=== PATIENT | female | born 1990 | race African-American/Black ===

== ENCOUNTER 2019-07-31 02:52 | Inpatient (IN) ==
[2019-07-31] MEDS ORDERED: ONDANSETRON 4 MG/2 ML VIAL IV PRN ×2 (03:08→07:31)
[2019-07-31] MEDS ORDERED: BUTORPHANOL 2 MG/ML VIAL IV PRN (03:08)
[2019-07-31] MEDS ORDERED: ONDANSETRON 4 MG/2 ML VIAL IV ONE (03:12)
[2019-07-31] MEDS ORDERED: hydrOXYzine HCL 25 MG/1 ML VIAL IM PRN (03:12)
[2019-07-31] MEDS ORDERED: NALOXONE 0.4 MG/ML VIAL IV PRN (03:12)
[2019-07-31] MEDS ORDERED: PROMETHAZINE 25 MG/1 ML VIAL IM PRN (03:12)
[2019-07-31] MEDS ORDERED: diphenhydrAMINE 50 MG/1 ML VIAL IV PRN ×2 (03:12)
[2019-07-31] MEDS ORDERED: ePHEDrine 50 MG/ML AMP IV PRN (03:12)
[2019-07-31] MEDS ORDERED: CITRIC ACID/SODIUM CITRATE 30 ML UDCUP PO ONE ×2 (03:15→03:21)
[2019-07-31] MEDS ORDERED: FAMOTIDINE 20 MG/2 ML VIAL IV ONE ×2 (03:15→03:21)
[2019-07-31] MEDS ORDERED: OXYTOCIN/LR 20 UNIT/1,000 ML BAG IV PRN ×2 (03:15→03:21)
[2019-07-31 03:30] LABS: Basophils % 0.2 % (0.0-0.8); Eosinophils # 0.4 10*3/uL (0.0-0.87); Eosinophils % 3.9 % (0.00-10.9); Hematocrit 35.2 VOL% (35.7-47.0); Hemoglobin 11.8 GM/DL (12.0-16.0); Lymphocytes % 19.7 % (21.3-54.2); Mean Corpuscular HGB Conc 33.5 GM/DL (32-36); Mean Corpuscular Volume 98.6 FL (87-102); Mean Platelet Volume 11.2 FL (9.6-12.0); Monocytes % 6.7 % (1.7-12.7); Neutrophils % 68.5 % (38.7-73.9); Platelet Count 158 T/CUMM (130-400); Red Blood Count 3.57 MC/CUMM (3.8-5.5); Red Cell Distribution Width 12.6 % (9.3-17.3)
[2019-07-31] MEDS ORDERED: fentaNYL 2 MCG/ROPIV 0.2% EPID 100 ML EPIDURAL SCH (03:30)
[2019-07-31] MEDS ORDERED: LACTATED RINGERS 1,000 ML IV SCH (03:30)
[2019-07-31] MEDS ORDERED: INFLUENZA VIRUS VACCINE 0.5 ML SYRINGE IM ONE (03:38)
[2019-07-31] MEDS ORDERED: MEPERIDINE 50 MG/1 ML VIAL ONE (03:44)
[2019-07-31 03:51] LABS: Alanine Aminotransferase 25 U/L (13-56); Albumin 2.8 G/DL (3.4-5.0); Alkaline Phosphatase 115 U/L (45-117); Aspartate Amino Transferase 25 U/L (0-37); Bilirubin,Total < 0.39 MG/DL (0.2-1.0); Blood Urea Nitrogen 5 MG/DL (7-18); Calcium 8.7 MG/DL (8.5-10.1); Estimated Glom Filtration Rate 163 ML/MIN; Glucose 92 MG/DL (74-106); Osmolality,Calculated 271.7 MOS/KG (273-304); Total Protein 6.6 G/DL (6.4-8.3)
[2019-07-31 04:40] LABS: Apearance,Urine CLEAR (Clear); Bilirubin,Urine Negative (Negative); Blood, Urine Small mg/dL (Negative); Glucose,Urine (UA) Negative (Negative); Ketones,Urine Negative (Negative); Mucus,Urine Occasional /LPF (Occasional); Nitrite,Urine Negative (Negative); Protein,Urine Negative; RBC,Urine 3 /HPF (0-4); Squamous Epithelial Cell,Urine Occasional /HPF (0-10); Urine Color Yellow (Yellow); Urine Specific Gravity 1.008 (1.001-1.035); Urine Urobilinogen < 2.0 EU/DL (0.2-1.0); WBC,Urine 1 /HPF (0-6)
[2019-07-31] MEDS ORDERED: MEPERIDINE 50 MG/1 ML VIAL IV ONE (04:51)
[2019-07-31] MEDS ORDERED: TRANEXAMIC ACID 1,000 MG/10 ML VIAL ONE (05:29)
[2019-07-31] MEDS ORDERED: METHYLERGONOVINE 0.2 MG/1 ML AMP ONE (05:29)
[2019-07-31] MEDS ORDERED: OXYTOCIN/LR 20 UNIT/1,000 ML BAG IV ONE ×2 (05:29→07:31)
[2019-07-31] MEDS ORDERED: CARBOPROST TROMETHAMINE 250 MCG/ML AMP IM ONE (05:29)
[2019-07-31] MEDS ORDERED: miSOPROStoL 200 MCG TABLET ONE (05:29)
[2019-07-31] MEDS ORDERED: miSOPROStoL 200 MCG TABLET VAG ONE (07:22)
[2019-07-31] MEDS ORDERED: MEASLES/MUMPS/RUBELLA VACCINE 0.5 ML VIAL SUBCUT ONE (07:31)
[2019-07-31] MEDS ORDERED: HYDROCORTISONE 2.5% RECTAL CREAM 30 GM TUBE TOP PRN (07:31)
[2019-07-31] MEDS ORDERED: BENZOCAINE 20%/MENTHOL 0.5% SPRAY 56 GM CAN TOP PRN (07:31)
[2019-07-31] MEDS ORDERED: LANOLIN 50% CREAM 0.3 OZ TUBE TOP PRN (07:31)
[2019-07-31] MEDS ORDERED: oxyCODONE/ACETAMINOPHEN 5-325 MG TABLET PO PRN (07:31)
[2019-07-31] MEDS ORDERED: DIPH/TET/ACEL PERT BOOSTER VACCINE 0.5 ML VIAL IM ONE (07:31)
[2019-07-31] MEDS ORDERED: WITCH HAZEL PADS 100/JAR TOP PRN (07:31)
[2019-07-31] MEDS ORDERED: BISACODYL 10 MG SUPP RECTAL PRN (07:31)
[2019-07-31] MEDS ORDERED: RHO(D) IMMUNE GLOBULIN 300 MCG SYRINGE IM ONE (07:31)
[2019-07-31] MEDS ORDERED: ACETAMINOPHEN 325 MG TABLET PO PRN (07:31)
[2019-07-31] MEDS ORDERED: METHYLERGONOVINE 0.2 MG/1 ML AMP IM ONE (07:34)
[2019-07-31] MEDS: IBUPROFEN 800 MG TABLET PO PRN (12:12)
[2019-07-31] MEDS: oxyCODONE/ACETAMINOPHEN 5-325 MG TABLET PO PRN (19:23)
[2019-07-31] MEDS: DOCUSATE SODIUM 100 MG CAPSULE PO SCH ×2 (19:23→22:59)
[2019-08-01] MEDS: oxyCODONE/ACETAMINOPHEN 5-325 MG TABLET PO PRN ×3 (02:44→17:55)
[2019-08-01 06:04] LABS: Basophils % 0.2 % (0.0-0.8); Eosinophils # 0.4 10*3/uL (0.0-0.87); Eosinophils % 2.6 % (0.00-10.9); Hematocrit 25.5 VOL% (35.7-47.0); Hemoglobin 8.6 GM/DL (12.0-16.0); Immature Granulocytes % 0.8 %; Immature Granulocytes Absolute 0.11 #; Lymphocytes # 2.6 10*3/uL (1.4-4.0); Lymphocytes % 19.3 % (21.3-54.2); Mean Corpuscular HGB Conc 33.7 GM/DL (32-36); Mean Corpuscular Volume 97.7 FL (87-102); Mean Platelet Volume 11.5 FL (9.6-12.0); Monocytes % 5.7 % (1.7-12.7); Neutrophils % 71.4 % (38.7-73.9); Platelet Count 115 T/CUMM (130-400); Red Blood Count 2.61 MC/CUMM (3.8-5.5); Red Cell Distribution Width 12.9 % (9.3-17.3); White Blood Count 13.3 T/CUMM (4-12)
[2019-08-01] MEDS: DOCUSATE SODIUM 100 MG CAPSULE PO SCH ×3 (09:15→21:41)
[2019-08-01] MEDS: IBUPROFEN 800 MG TABLET PO PRN ×2 (09:16→17:54)
[2019-08-01] MEDS: FERROUS SULFATE 325 MG TABLET PO SCH (21:03)
[2019-08-02 07:52] VITALS: BP 129/87
[2019-08-02] MEDS: DOCUSATE SODIUM 100 MG CAPSULE PO SCH (09:05)
[2019-08-02] MEDS: FERROUS SULFATE 325 MG TABLET PO SCH (09:05)
== END 2019-08-02 11:03 | disposition home or self-care (01) | DRG 542 ==
LOC: N.LDOUT 02:52 → N.LD 02:52 → N.OB 11:08
PROVIDERS: ADMIT Obstetrics & Gynecology; ATTEND Obstetrics & Gynecology